=== PATIENT | female | born 1985 | race African-American/Black ===

== ENCOUNTER 2016-03-27 08:18 | Emergency (ER) | payer MEDICAID ==
[2016-03-27 09:01] LABS: HCG URINE NEGATIVE (NEGATIVE)
[2016-03-27 09:17] LABS: APPEARANCE CLEAR (CLEAR); BACTERIA FEW /hpf (NONE SEEN); BILIRUBIN NEGATIVE (NEGATIVE); COLOR YELLOW (YELLOW); EPITHELIAL CELLS 0-5 /hpf (0-5); GLUCOSE NEGATIVE (NEGATIVE); KETONE NEGATIVE (NEGATIVE); LEUKOCYTE ESTERASE NEGATIVE (NEGATIVE); MUCUS <1+ /lpf (NONE SEEN); NITRITE NEGATIVE (NEGATIVE); PROTEIN NEGATIVE (NEGATIVE); RED CELLS - URINE 0-5 /hpf (0-5); SPECIFIC GRAVITY 1.015 (1.005-1.020); UROBILINOGEN NORMAL (NORMAL); WHITE CELLS - URINE RARE /hpf (0-5)
== END 2016-03-27 09:36 | disposition home or self-care (01) ==
LOC: D.ER 08:18
PROVIDERS: Emergency Medicine
DX: J30.9 Allergic rhinitis, unspecified (principal); R30.0 Dysuria; J45.909 Unspecified asthma, uncomplicated

== ENCOUNTER 2016-05-03 11:41 | Emergency (ER) | payer MEDICAID | END 2016-05-03 11:53 | disposition left against medical advice (07) | LOC: D.ER 11:41 | DX: N93.9 Abnormal uterine and vaginal bleeding, unspecified (principal) ==

== ENCOUNTER 2016-05-21 11:40 | Emergency (ER) | payer MEDICAID ==
[2016-05-21 12:52] LABS: BASOPHILS 0.1 % (0.0-2.0); EOSINOPHILS 2.1 % (0-7); HEMATOCRIT 32.9 % (36.0-48.0); HEMOGLOBIN 10.7 g/dL (12-16); IMMATURE GRANULOCYTES 0.5 % (0-5); LYMPHOCYTES 21.4 % (15-50); MCH 26.4 pg (26.0-34.0); MCHC 32.5 g/dL (31.0-37.0); MCV 81.2 fL (80.0-100.0); MONOCYTES 7.3 % (2-11); NEUTROPHILS 68.6 % (40-80); PLATELET COUNT 329 10x3/uL (130-400); RBC 4.05 10x6/uL (4.00-5.40); RDW 14.2 % (11.5-14.5); WBC 9.6 10x3/uL (4.8-10.8)
[2016-05-21 13:36] LABS: HCG SERUM POSITIVE (NEGATIVE)
[2016-05-21 14:50] LABS: ALBUMIN 3.2 g/dL (3.4-5.0); ALKALINE PHOSPHATASE 82 U/L (46-116); ALT (SGPT) 16 U/L (10-68); BILIRUBIN - TOTAL 0.17 mg/dL (0.2-1.3); CALC OSMOLALITY 272 mosm/kg (275-300); CALCIUM 9.3 mg/dL (8.5-10.1); CARBON DIOXIDE 23.8 mmol/L (21.0-32.0); CHLORIDE - SERUM 101 mmol/L (98-107); CREATININE - SERUM 0.6 mg/dL (0.6-1.3); GLUCOSE 88 mg/dL (74-106); POTASSIUM - SERUM 3.6 mmol/L (3.5-5.1); PROTEIN - SERUM 7.8 g/dL (6.4-8.2); SODIUM 138 mmol/L (136-145); UREA NITROGEN 8 mg/dL (7-18); eGFR NON AFRICAN AMERICAN > 90 mL/min (90-120)
[2016-05-21 14:59] LABS: THYROID STIMULATING HORMONE 0.26 uIU/mL (0.36-3.74)
== END 2016-05-21 15:50 | disposition home or self-care (01) ==
LOC: D.ER 11:40
PROVIDERS: Family Medicine
DX: O26.899 Other specified pregnancy related conditions, unspecified trimester (principal); R42 Dizziness and giddiness; J45.909 Unspecified asthma, uncomplicated

== ENCOUNTER → 2016-10-08 06:27 | Outpatient (CLI) | payer MEDICAID ==
[2016-10-08 07:27] LABS: BASOPHILS 0.2 % (0-2); EOSINOPHILS 3.3 % (0-7); HEMOGLOBIN 8.6 g/dL (12-16); IMMATURE GRANULOCYTES 0.5 % (0-5); LYMPHOCYTES 20.2 % (15-50); MCH 24.5 pg (26.0-34.0); MCHC 31.9 g/dL (31.0-37.0); MCV 76.9 fL (80.0-100.0); MEAN PLATELET VOLUME 8.8 fL (7.4-10.4); MONOCYTES 9.5 % (2-11); NEUTROPHILS 66.3 % (40-80); PLATELET COUNT 252 10x3/uL (130-400); RBC 3.51 10x6/uL (4.00-5.40); RDW 15.9 % (11.5-14.5); WBC 9.8 10x3/uL (4.8-10.8)
[2016-10-08 08:16] LABS: APPEARANCE CLEAR (CLEAR); BILIRUBIN NEGATIVE (NEGATIVE); COLOR YELLOW (YELLOW); GLUCOSE NEGATIVE (NEGATIVE); KETONE SMALL mg/dL (NEGATIVE); LEUKOCYTE ESTERASE TRACE (NEGATIVE); NITRITE NEGATIVE (NEGATIVE); PROTEIN NEGATIVE (NEGATIVE); SPECIFIC GRAVITY 1.005 (1.005-1.020); UROBILINOGEN NORMAL (NORMAL)
[2016-10-08 08:18] LABS: BACTERIA FEW /hpf (NONE SEEN); EPITHELIAL CELLS 0-5 /hpf (0-5); MUCUS <1+ /lpf (NONE SEEN); WHITE CELLS - URINE 0-5 /hpf (0-5)
== END | disposition home or self-care (01) ==
LOC: D.LDO 06:27
PROVIDERS: Obstetrics & Gynecology
DX: O26.893 Other specified pregnancy related conditions, third trimester (principal); Z3A.31 31 weeks gestation of pregnancy; R42 Dizziness and giddiness; R51 Headache

== ENCOUNTER 2016-10-19 23:20 | Outpatient (CLI) | payer MEDICAID ==
[2016-10-19 23:46] LABS: APPEARANCE CLEAR (CLEAR); BILIRUBIN NEGATIVE (NEGATIVE); COLOR YELLOW (YELLOW); GLUCOSE NEGATIVE (NEGATIVE); KETONE NEGATIVE (NEGATIVE); LEUKOCYTE ESTERASE NEGATIVE (NEGATIVE); NITRITE NEGATIVE (NEGATIVE); PROTEIN NEGATIVE (NEGATIVE); SPECIFIC GRAVITY 1.015 (1.005-1.020); UROBILINOGEN NORMAL (NORMAL)
== END 2016-10-20 00:09 | disposition home or self-care (01) ==
LOC: D.LD 23:20 → D.LDO 23:20
PROVIDERS: Obstetrics & Gynecology
DX: Z34.83 Encounter for supervision of other normal pregnancy, third trimester (principal); Z3A.32 32 weeks gestation of pregnancy

== ENCOUNTER → 2016-11-08 10:56 | Outpatient (CLI) | payer MEDICAID | END | disposition home or self-care (01) | LOC: D.LDO 10:56 | DX: O26.893 Other specified pregnancy related conditions, third trimester (principal); Z3A.36 36 weeks gestation of pregnancy ==

== ENCOUNTER → 2016-11-29 04:37 | Outpatient (CLI) | payer MEDICAID ==
[2016-11-29 05:38] LABS: APPEARANCE CLOUDY (CLEAR); BILIRUBIN NEGATIVE (NEGATIVE); COLOR DK YELLOW (YELLOW); GLUCOSE NEGATIVE (NEGATIVE); KETONE NEGATIVE (NEGATIVE); LEUKOCYTE ESTERASE TRACE (NEGATIVE); NITRITE NEGATIVE (NEGATIVE); PROTEIN 1+ mg/dL (NEGATIVE); UROBILINOGEN NORMAL (NORMAL)
[2016-11-29 05:39] LABS: BACTERIA MODERATE /hpf (NONE SEEN); CALCIUM OXALATE CRYSTALS 0-5 /hpf (NONE SEEN); EPITHELIAL CELLS 0-5 /hpf (0-5); MUCUS >1+ /lpf (NONE SEEN); RED CELLS - URINE 0-5 /hpf (0-5); WHITE CELLS - URINE 0-5 /hpf (0-5)
[2016-11-29 05:44] LABS: UDS - AMPHET NEGATIVE QUAL (NEGATIVE); UDS - BARB NEGATIVE QUAL (NEGATIVE); UDS - BENZO NEGATIVE QUAL (NEGATIVE); UDS - COCAINE NEGATIVE QUAL (NEGATIVE); UDS - METH NEGATIVE QUAL (NEGATIVE); UDS - OPIATE NEGATIVE QUAL (NEGATIVE); UDS - PCP NEGATIVE QUAL (NEGATIVE); UDS - THC NEGATIVE QUAL (NEGATIVE)
== END ==
LOC: D.LDO 04:37
PROVIDERS: Obstetrics & Gynecology
DX: O26.893 Other specified pregnancy related conditions, third trimester (principal); Z3A.39 39 weeks gestation of pregnancy

== ENCOUNTER 2016-12-03 04:58 | Inpatient (IN) | payer MEDICAID ==
[~2016-12-03] VITALS: Ht 149.9 cm; Wt 82.6 kg
[2016-12-03 05:35] VITALS: BP 103/59; Ht 149.9 cm; Wt 82.6 kg
[2016-12-03] MEDS ORDERED: FERROUS SULFAT325 MG PO (05:56)
[2016-12-03] MEDS ORDERED: PRENATAL COMPLE1 TAB PO (05:56)
[2016-12-03] MEDS ORDERED: CETIRIZINE HCL5 MG PO (05:57)
[2016-12-03] MEDS ORDERED: PROVENTIL HFA6.7 GM INH (06:03)
[2016-12-03] MEDS ORDERED: BUSPAR5 MG PO (06:03)
[2016-12-03 06:16] LABS: HEMATOCRIT 31.2 % (36.0-48.0); MCH 25.6 pg (26.0-34.0); MCHC 32.1 g/dL (31.0-37.0); MCV 79.8 fL (80.0-100.0); MEAN PLATELET VOLUME 9.6 fL (7.4-10.4); RBC 3.91 10x6/uL (4.00-5.40); RDW 19.3 % (11.5-14.5); WBC 10.5 10x3/uL (4.8-10.8)
[2016-12-03 06:44] LABS: APPEARANCE SLT CLOUDY (CLEAR); BILIRUBIN NEGATIVE (NEGATIVE); COLOR YELLOW (YELLOW); GLUCOSE NEGATIVE (NEGATIVE); KETONE NEGATIVE (NEGATIVE); LEUKOCYTE ESTERASE 2+ (NEGATIVE); NITRITE NEGATIVE (NEGATIVE); PROTEIN NEGATIVE (NEGATIVE); SPECIFIC GRAVITY 1.015 (1.005-1.020); UROBILINOGEN NORMAL (NORMAL)
[2016-12-03 06:48] LABS: BACTERIA MANY /hpf (NONE SEEN); CALCIUM OXALATE CRYSTALS OCC /hpf (NONE SEEN); MUCUS <1+ /lpf (NONE SEEN); RED CELLS - URINE OCC /hpf (0-5)
[2016-12-03 20:34] VITALS: BP 109/56
--- NOTE | 2016-12-03 20:34 | NUR ---
PT AMBULATORY TO ROOM 1273 FOR CONTINUED PP CARE FOLLOWING NVD AT 1552. VSS. FUNDUS FIRM, U2 MIDLINE WITH SMALL AMT RUBRA LOCHIA, NO CLOTS PRESENT. SHIFT ASSESSMENT COMPLETED. BREATH SOUNDS CLEAR AND EQUAL BILATERALLY, BOWEL SOUNDS PRESENT AND ACTIVE X4. PT STATES THAT SHE HAS PASSED FLATUS, VOIDING WITHOUT DIFFICULTY AND DENIES NAUSEA. PT AND S/O ORIENTED TO ROOM, BATHROOM, CL USE, PHONE USE, AND BEDRAILS, VERBALIZES UNDERSTANDING. SANDWICH TRAY AND SODA PROVIDED PER REQUEST. DENIES ADDITIONAL NEEDS. SHOWER OFFERED AT THIS TIME. PT STATES THAT SHE "MAY SHOWER LATER BUT NOT RIGHT NOW." INSTRUCTED TO NOTIFY RN IF SHE DECIDES TO SHOWER. INFANT REMAINS IN ROOM IN OPEN CRIB AT THIS TIME. NBN NOTIFIED THAT PT HAD BEEN MOVED TO NEW ROOM. S/O REMAINS AT BEDSIDE, SUPPORTIVE AND ATTENTATIVE TO PT AND . BED IN LOW POSITION WITH UPPER SIDE RAILS RAISED X2. CL AND PHONE WITHIN PT REACH. WILL CONT TO MONITOR AND ASSIST PRN.
--- NOTE | 2016-12-03 21:55 | NUR ---
RN TO BEDSIDE FOR ROUNDS. PT IN HIGH FOWLERS POSITION ON CELL PHONE. AT BEDSIDE IN OPEN CRIB. PT REQUESTS TEMP CHECK STATING THAT SHE IS HOT AND COLD . TEMP 98.8. DENIES ADDITIONAL NEEDS AT THIS TIME. BED IN LOW POSITION WITH UPPER SIDE RAILS RAISED X2. CL AND PHONE WITHIN REACH. WILL CONT TO MONITOR AND ASSIST PRN.
--- NOTE | 2016-12-03 23:52 | NUR ---
RN TO BEDSIDE FOR ROUNDS. PT RESTING WITH EYES CLOSED AT THIS TIME. RESPIRATIONS REGULAR AND UNLABORED, NO S/S OF DISTRESS NOTED. S/O RESTING ON COUCH AT BEDSIDE. BED IN LOW POSITION WITH UPPER SIDE RAILS RAISED X2. CL AND PHONE WITHIN PT REACH. WILL CONT TO MONITOR AND ASSIST PRN.
--- NOTE | 2016-12-04 01:17 | NUR ---
CALLED TO ROOM VIA CL. PT C/O ABD CRAMPING 07/18. REQUESTS MOTRIN, GIVEN PER REQUEST. S/O RESTING ON COUCH AT BEDSIDE. BACK TO NBN PER REQUEST. BED IN LOW POSITION WITH UPPER SIDE RAILS RAISED X2. CL AND PHONE WITHIN REACH. WILL CONT TO MONITOR AND ASSIST PRN.
--- NOTE | 2016-12-04 01:58 | NUR ---
RN TO BEDSIDE. PAIN REASSESSMENT COMPLETED. PT RESTING WITH EYES CLOSED. RESPIRATIONS REGULAR AND UNLABORED. NO S/S OF DISTRESS NOTED. BED IN LOW POSITION WITH UPPER SIDE RAILS RAISED X2. CL AND PHONE WITHIN REACH. WILL CONT TO MONITOR AND ASSIST PRN.
--- NOTE | 2016-12-04 04:50 | NUR ---
RN TO BEDSIDE FOR ROUNDS. PT IN HIGH FOWLERS POSITION BOTTLE FEEDING . RN PROVIDED ASSISTANCE WITH BOTTLE FEEDING INFANT PER REQUEST. C/O ABD CRAMPING 09/17. NORCO GIVEN (SEE EMAR). PT INSTRUCTED ON FALL PRECAUTIONS AND SAFETY MEASURES TO TAKE WITH INFANT WHILE RECEIVING NORCO. SIDE EFFECTS OF NORCO EXPLAINED, VERBALIZES UNDERSTANDING. TAKEN TO NBN. PT STATES THAT S/O HAD TO LEAVE TO GO GET OLDER CHILDREN READY FOR SCHOOL AND WOULD BE BACK AFTER THAT. BED IN LOW POSITION WITH UPPER SIDE RAILS RAISED X2. CL AND PHONE WITHIN REACH. WILL CONT TO MONITOR AND ASSIST PRN.
--- NOTE | 2016-12-04 05:30 | NUR ---
RN TO BEDSIDE FOR PAIN REASSESSMENT. PT SITTING IN HIGH FOWLERS POSITION TALKING ON CELL PHONE. PAIN 3/, DENIES NEEDS AT THIS TIME. BED IN LOW POSITION WITH UPPER SIDE RAILS RAISED X2. CL AND PHONE WITHIN REACH. WILL CONT TO MONITOR AND ASSIST PRN.
[2016-12-04 06:50] LABS: BASOPHILS 0.2 % (0-2); EOSINOPHILS 3.3 % (0-7); HEMATOCRIT 31.1 % (36.0-48.0); HEMOGLOBIN 9.9 g/dL (12-16); IMMATURE GRANULOCYTES 0.6 % (0-5); MCH 25.3 pg (26.0-34.0); MCHC 31.8 g/dL (31.0-37.0); MCV 79.5 fL (80.0-100.0); MEAN PLATELET VOLUME 9.3 fL (7.4-10.4); MONOCYTES 14.2 % (2-11); NEUTROPHILS 62.7 % (40-80); PLATELET COUNT 247 10x3/uL (130-400); RBC 3.91 10x6/uL (4.00-5.40); RDW 19.1 % (11.5-14.5); WBC 10.5 10x3/uL (4.8-10.8)
[2016-12-04 07:26] LABS: RAPID PLASMA REAGIN Non Reactive (Non Reactive)
--- NOTE | 2016-12-04 08:27 | NUR ---
Upon entering room pt is sitting up eating breakfast with infant in crib at bedside. Denies pain at this time but does states she continues to have "alot of cramping" reassured her that cramping is expected would decrease daily. Questions answered about when saline lock can be removed and when she can shower. Pt than questions infant feeding and concerns about amount of "spit up" Nursery notified and Patricia Bell rn to room to address pt concerns about infant. taken to nursery via crib at this time for assessment. Pt to call for nurse when she is finished with her breakfast.
[2016-12-04 09:00] VITALS: BP 103/61
--- NOTE | 2016-12-04 10:16 | NUR ---
PT CALLS OUT AEROBICS TEACHER LIGHT, THIS RN TO ROOM. PT C/O PAIN RATED 8/10 AND ALSO REQUESTING FOR IV OUT TO GET IN SHOWER. LEFT WRIST PIV REMOVED WITHOUT INCIDENT. PRESSURE APPLIED UNTIL BLEEDING CEASED, BANDAID APPLIED. PT ADMIN PRN IBUPROFEN AND NORCO 5 ORDERED AND REQUESTED BY PT. SEE EMAR FOR DOC. PT PROVIDED WITH TOWELS, CLOTHS, TOOTHBRUSH AND TOOTHPASTE. PT DENIES FURTHER NEEDS. SRUx2, WILL CONT TO MONITOR.
--- NOTE | 2016-12-04 11:00 | NUR ---
Reassesment for pain done, upon entering room pt is getting out of shower. States she does feel better but still having alot of cramping. Reassured and teaching done on why cramping is present, also provided with warm blanket to put on her back or abd whichever gives more relief. in crib at bedside and sig other on couch. Side rails up x 2 with call light and phone in reach.
--- NOTE | 2016-12-04 13:05 | NUR ---
RESTING IN BED. UP AND ABOUT ROOM AD DAGO. NO DISTRESS NOTED.
--- NOTE | 2016-12-04 15:45 | NUR ---
ROOM CHECK. PT. FEEDING BABY A BOTTLE . STATES SHE DID NOT TRY TO BREAST FEED. TEACHING DONE. QUESTIONS ANSWERED. NO ABNORMAL BLEEDING.
--- NOTE | 2016-12-04 17:35 | NUR ---
BABY RETURNED TO NURSERY AT MOM'S REQUEST. PT STATES SHE IS UNCOMFORTABLE.
--- NOTE | 2016-12-04 18:07 | NUR ---
MEDS GIVEN FOR ABD DISCOMFORT UPPER ABD. STATES PAIN IS VERY UNCOMFORTABLE. RATES PAIN 6/10. FUNDUS FIRM AND MID-LINE. BELOW UMBIL. NO CLOTS NOTED.
--- NOTE | 2016-12-04 19:10 | NUR ---
REPORT REC'D FROM Vy GREENE RN.
--- NOTE | 2016-12-04 19:15 | NUR ---
RN TO BEDSIDE. PT SITTING IN HIGH HARRIS'S POSITION BOTTLE FEEDING . DENIES PAIN AT THIS TIME. BED IN LOW POSITION WITH UPPER SIDE RAILS RAISED X2. CL AND PHONE WITHIN REACH. WILL CONT TO MONITOR AND ASSIST PRN.
[2016-12-04 20:16] VITALS: BP 118/63
--- NOTE | 2016-12-04 20:16 | NUR ---
RN TO BEDSIDE WITH INFANT. ID BANDS MATCHED. RESTING QUIETLY IN OPEN CRIB, RESPIRATIONS REGULAR WITH NO S/S OF DISTRESS NOTED. SHIFT ASSESSMENT COMPLETED. PAIN 2/10, ABD CRAMPING. VSS. FUNDUS FIRM U2 AND MIDLINE WITH SMALL AMT RUBRA LOCHIA. NO CLOTS PRESENT. PT STATES THAT SHE IF VOIDING WITHOUT DIFFICULTY, PASSING FLATUS AND DID HAVE SMALL BM TODAY. PT STATES THAT IS DISAPPOINTED THAT BREAST FEEDING ISN'T WORKING WITH . PUMP OFFERED, PT AGREEABLE TO PUMP AND STATES THAT SHE WANT'S TO SUPPLEMENT WITH FORMULA. PT INSTRUCTED ON BREAST PUMP USE AND DEMONSTRATES UNDERSTANDING. INSTRUCTED TO NOTIFY RN WHEN PUMPING COMPLETED FOR BREAST MILK STORAGE, VERBALIZES UNDERSTANDING. BED IN LOW POSITION WITH UPPER SIDE RAILS RAISED X2. CL AND PHONE WITHIN REACH. WILL CONT TO MONITOR AND ASSIST PRN.
--- NOTE | 2016-12-04 21:10 | NUR ---
RN TO BEDSIDE FOR ROUNDS. PT COMPLETED PUMPING AT THIS TIME WITH 20 MLS PRESENT IN BOTTLE. PT STATES THAT SHE IS GOING TO FEED BREAST MILK TO AT 2200 FEEDING. INSTRUCTED THAT BREAST MILK CAN REMAIN SITTING AT ROOM TEMP FOR 4-6 HOURS PRIOR TO FEEDING. DENIES NEEDS AT THIS TIME. BED IN LOW POSITION WITH UPPER SIDE RAILS RAISED X2. CL AND PHONE WITHIN REACH. WILL CONT TO MONITOR AND ASSIST PRN.
--- NOTE | 2016-12-04 22:18 | NUR ---
RN TO BEDSIDE FOR ROUNDS. PT IN HIGH FOWLERS POSITION BOTTLE FEEDING . DENIES NEEDS. STATES THAT SHE CAN FEEL BREAST GETTING "HEAVY" AND IS GOING TO PUMP FOLLOWING BOTTLE FEEDING . BED REMAINS IN LOW POSITION WITH UPPER SIDE RAILS RAISED X2. CL AND PHONE WITHIN REACH. WILL CONT TO MONITOR AND ASSIST PRN.
--- NOTE | 2016-12-05 00:14 | NUR ---
RN TO BEDSIDE FOR ROUNDS. PT RESTING WITH EYES CLOSED ON LEFT SIDE. RESPIRATION REGULAR AND UNLABORED. NO S/S OF DISTRESS NOTED. BED IN LOW POSITION WITH UPPER SIDE RAILS RAISED X2. CL AND PHONE WITHIN REACH. WILL CONT TO MONITOR AND ASSIST PRN.
--- NOTE | 2016-12-05 01:30 | NUR ---
RN TO BEDSIDE WITH INFANT FOR FEEDING. ID BANDS MATCHED. PAIN 10/18, ABD CRAMPING. PT REQUESTED NORCO AND MOTRIN, STATES THAT SHE TOOK THEM TOGETHER EARILER AND THEY WORKED BETTER FOR HER. GIVEN PER REQUEST. HANDED TO PT FOR FEEDING. SODA GIVEN. DENIES ADDITIONAL NEEDS AT THIS TIME. BED IN LOW POSITION WITH UPPER SIDE RAILS X2. CL AND PHONE WITHIN REACH. WILL CONT TO MONITOR AND ASSIST PRN.
--- NOTE | 2016-12-05 03:00 | NUR ---
PAIN REASSESSMENT COMPLETED. 05/18. PT SITTING IN HIGH FOWLERS POSITION BONDING WITH AT THIS TIME. DENIES NEEDS. BED IN LOW POSITION WITH UPPER SIDE RAILS RAISED X2. CL AND PHONE WITHIN REACH. WILL CONT TO MONITOR AND ASSIST PRN.
--- NOTE | 2016-12-05 04:16 | NUR ---
RN TO BEDSIDE FOR ROUNDS. PT LAYING ON RIGHT SIDE RESTING WITH EYES CLOSED. RESPIRATIONS REGULAR AND UNLABORED. NO S/S OF DISTRESS NOTED. BED IN LOW POSITION WITH UPPER SIDE RAILS RAISED X2. CL AND PHONE WITHIN REACH. WILL CONT TO MONITOR AND ASSIST PRN.
--- NOTE | 2016-12-05 06:08 | NUR ---
RN TO BEDSIDE FOR ROUNDS. PT RESTING WITH EYES CLOSED. RESPIRATIONS REGULAR ADN UNLABORED, NO S/S OF DISTRESS NOTED. BED IN LOW POSITION WITH UPPER SIDE RAILS RAISED X2. WILL CONT TO MONITOR AND ASSIST PRN.
[2016-12-05 07:26] VITALS: BP 122/83
--- NOTE | 2016-12-05 07:26 | NUR ---
RECEIVED PT SITTING UP IN BED. AAO X 3. VSS. HRRR WITHOUT AUDIBLE MURMUR. BBS CLEAR. BS X 4. ABDOMEN SOFT/NON-DISTENDED. FUNDUS FIRM AT U/2. RUBRA LOCHIA SMALL AMT. NO CLOTS OR HEAVY BLEEDING PER PT STATES. NEG HOMANS' SIGN. PPP. NO EDEMA NOTED TO BLE. PT C/O ABDOMINAL CRAMPING OF "8" ON 0-10 PAIN SCALE. SR UP X 2. CALL LIGHT IN REACH.
--- NOTE | 2016-12-05 07:39 | NUR ---
PT C/O ABDOMINAL CRAMPING OF "8" ON 0-10 PAIN SCALE. MOTRIN 600 MG AND NORCO 5/325 GIVEN PO PER PT REQUEST. PT INSTRUCTED ON MEDS. VERBALIZES UNDERSTANDING.
--- NOTE | 2016-12-05 08:10 | NUR ---
PT SITTING UP IN BED. VISITS WITH SO. DENIES C/O OR NEEDS. STATES PAIN MEDICATION RELIEVING PAIN.
--- NOTE | 2016-12-05 08:43 | NUR ---
Baby's Full Name - Carlos Reza Mother's Name - Renuka Urbina Father's Name - Paxton Reza CM consult rec'd due to concern of MOB having 6 other children and part of them not living with her. CM met with MOB. She reports she lives at home with her popeye (MOI) and 3 of her other 6 children, ages 3,6, & 9. She reports her other 3 children, ages 12, 13, & 15 live with their maternal grandmother. She reports she has full custody of all 6 children but the older children live with grandmother for education purposes. 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 She reports her home is a safe environment with all working utilities, no pets, drug use or ETOH abuse in the home. She reports she has reliable transportation & car seat for . She currently receives WIC benefits for her 3 year old and SNAP benefits for all the children. She is planning to breast feed (pump) as she can, and supplement with formula. She reports having all necessary supplies for baby, including, clothing, bedding, diapers & bottles. I called [facility] hotline - confirmed there is no open case for this family. If MD or nursing staff have concerns regarding discharge of home with parents, they should call [facility] Hot Line to report concerns @ [phone].
--- NOTE | 2016-12-05 10:00 | NUR ---
PT SITTING UP IN BED. VISITS WITH SO. DENIES PAIN OR NEEDS. INFORMED OF ORDERS RECEIVED TO DC PT HOME PER DR RDZ. PT IN AGREEMENT. AWAITING 'S DISCHARGE.
[2016-12-05] MEDS ORDERED: HYDROCODON-ACE1 EAC7 PO (10:14)
[2016-12-05] MEDS ORDERED: MOTRIN600 MG PO (10:15)
--- NOTE | 2016-12-05 11:30 | NUR ---
PT AMBULATORY IN ROOM. STATES PREPARING FOR DISCHARGE. DENIES NEEDS OR C/O.
--- NOTE | 2016-12-05 12:15 | NUR ---
WRITTEN AND VERBAL DISCHARGE INSTRUCTIONS GIVEN, WELL PP INSTRUCTIONS, PRESCRIPTIONS, HEALTH SUMMARY, AND PT EDUCATION MATERIALS. PT AND FOB BOTH VERBALIZE UNDERSTANDING AND DENY FURTHER QUESTIONS. WILL FINISH LUNCH AND CALL OUT WHEN READY FOR DISCHARGE OUT.
--- NOTE | 2016-12-05 13:00 | NUR ---
PT READY FOR DISCHARGE. PT AND INFANT DISCHARGED VIA WHEELCHAIR PER AUXILIARY STAFF TO PRIVATE VEHICLE.
== END 2016-12-05 13:00 | disposition home or self-care (01) | DRG 775 ==
LOC: D.LD 04:58
PROVIDERS: ADMIT Obstetrics & Gynecology
PROC: 10E0XZZ Delivery of Products of Conception, External Approach (ICD-10-PCS; principal; 2016-12-03)
PROC: 10907ZC Drainage of Amniotic Fluid, Therapeutic from Products of Conception, Via Natural or Artificial Opening (ICD-10-PCS; 2016-12-03)
PROC: 3E033VJ Introduction of Other Hormone into Peripheral Vein, Percutaneous Approach (ICD-10-PCS; 2016-12-03)
DX: O69.1XX0 Labor and delivery complicated by cord around neck, with compression, not applicable or unspecified (principal); Z3A.39 39 weeks gestation of pregnancy; Z37.0 Single live birth; O99.344 Other mental disorders complicating childbirth; F32.9 Major depressive disorder, single episode, unspecified; O99.334 Smoking (tobacco) complicating childbirth; O75.89 Other specified complications of labor and delivery; M79.7 Fibromyalgia; Z91.19 Patient's noncompliance with other medical treatment and regimen; Z64.1 Problems related to multiparity

== ENCOUNTER 2016-12-07 06:51 | Emergency (ER) | payer MEDICAID ==
[2016-12-03 05:35] VITALS: BMI 36.8
[~2016-12-07 06:51] MED LIST: BUSPAR5 MG PO; CETIRIZINE HCL5 MG PO; FERROUS SULFAT325 MG PO; HYDROCODON-ACE1 EAC7 PO; MOTRIN600 MG PO; PRENATAL COMPLE1 TAB PO; PROVENTIL HFA6.7 GM INH
== END 2016-12-07 07:42 | disposition home or self-care (01) ==
LOC: D.ER 06:51
DX: J01.90 Acute sinusitis, unspecified (principal)

== ENCOUNTER 2020-06-06 16:23 | Emergency (ER) | payer MEDICAID ==
[~2020-06-06] VITALS: Ht 149.9 cm; Wt 87.5 kg
[2020-06-06 17:05] VITALS: BP 156/112; Ht 149.9 cm; Wt 87.5 kg
[2020-06-06] MEDS ORDERED: XANAX2 MG PO (17:07)
[2020-06-06] MEDS ORDERED: ZYPREXA20 MG PO (17:07)
[2020-06-06] MEDS ORDERED: ZESTRIL10 MG PO (17:08)
[2020-06-06] MEDS ORDERED: BACLOFEN20 M1 PO (20:07)
[2020-06-06] MEDS ORDERED: VOLTAREN75 MG PO (20:07)
== END 2020-06-06 21:11 | disposition home or self-care (01) ==
LOC: D.ER 16:23
DX: M54.2 Cervicalgia (principal); M79.10 Myalgia, unspecified site; V89.2XXA Person injured in unspecified motor-vehicle accident, traffic, initial encounter; Y93.9 Activity, unspecified; Y92.9 Unspecified place or not applicable; I10 Essential (primary) hypertension; Z72.0 Tobacco use

== ENCOUNTER 2020-08-20 12:52 | Emergency (ER) | payer MEDICAID ==
[~2020-08-20] VITALS: Ht 149.9 cm; Wt 91.5 kg
[~2020-08-20 12:52] MED LIST changes: +BACLOFEN20 M1 PO; +VOLTAREN75 MG PO; +XANAX2 MG PO; +ZESTRIL10 MG PO; +ZYPREXA20 MG PO
[2020-08-20 13:02] VITALS: BP 136/81; Ht 149.9 cm; Wt 91.5 kg
[2020-08-20 13:28] LABS: BILIRUBIN NEGATIVE (NEGATIVE); KETONE NEGATIVE mg/dL (< 1+); NITRITE NEGATIVE (NEGATIVE); SQUAMOUS EPITHELIAL 2 HPF (0-4); UROBILINOGEN NORMAL mg/dL (< 2); WHITE CELLS - URINE 4 HPF (0-4)
[2020-08-20 14:12] LABS: CALC OSMOLALITY 276 mosm/kg (275-300); CALCIUM 8.7 mg/dL (8.5-10.1); CARBON DIOXIDE 24.4 mmol/L (21.0-32.0); CHLORIDE - SERUM 103 mmol/L (98-107); CREATININE - SERUM 0.8 mg/dL (0.6-1.3); GLUCOSE 111 mg/dL (74-106); POTASSIUM - SERUM 3.6 mmol/L (3.5-5.1); SODIUM 139 mmol/L (136-145); UREA NITROGEN 8 mg/dL (7-18); eGFR NON AFRICAN AMERICAN 86 mL/min (90-120)
[2020-08-20 14:21] LABS: ALBUMIN 4.5 g/dL (3.4-5.0); ALKALINE PHOSPHATASE 110 U/L (30-120); ALT (SGPT) 15 U/L (10-68); AMYLASE - SERUM 47 U/L (25-115); BILIRUBIN - TOTAL 0.41 mg/dL (0.2-1.3); LIPASE 41 U/L (73-393); PROTEIN - SERUM 8.3 g/dL (6.4-8.2); TROPONIN-I < 0.017 ng/mL (0.000-0.060)
[2020-08-20 14:27] LABS: BASOPHILS 1.3 % (0-2); EOSINOPHILS 2.2 % (0-7); HEMATOCRIT 29.5 % (36.0-48.0); HEMOGLOBIN 8.9 g/dL (12-16); LYMPHOCYTES 13.6 % (15-50); MCH 21.3 pg (26.0-34.0); MCHC 30.1 g/dL (31.0-37.0); MCV 70.6 fL (80.0-100.0); MEAN PLATELET VOLUME 7.1 fL (7.4-10.4); NEUTROPHILS 73.9 % (40-80); RBC 4.18 10x6/uL (4.00-5.40); RDW 20.6 % (11.5-14.5); WBC 13.8 10x3/uL (4.8-10.8)
[2020-08-20 14:33] LABS: PLATELET COUNT 525 10x3/uL (130-400)
[2020-08-20] MEDS ORDERED: HYDROCODON-ACE1 EAC7 PO (20:21)
[2020-08-20] MEDS ORDERED: ZOFRAN ODT4 MG/UDTAB PO (20:21)
[2020-08-20] MEDS ORDERED: BENTYL 20 MG TA20 MG PO (20:21)
[2020-08-20] MEDS ORDERED: NAPROSYN500 MG PO (20:22)
== END 2020-08-20 21:15 | disposition home or self-care (01) ==
LOC: D.ER 12:52
PROVIDERS: Family Medicine
DX: R10.30 Lower abdominal pain, unspecified (principal); R11.0 Nausea; I10 Essential (primary) hypertension; J45.909 Unspecified asthma, uncomplicated; Z72.0 Tobacco use; D64.9 Anemia, unspecified; D72.829 Elevated white blood cell count, unspecified